=== PATIENT | female | born 1990 | race Caucasian/White ===

== ENCOUNTER 2016-08-01 07:18 | Outpatient (CLI) | payer OTHER ==
[2016-08-01] MEDS ORDERED: IOPAMIDOL-300 100 ML VIAL IVP ONE (07:34)
--- NOTE | 2016-08-01 10:56 | CT Report ---
CT NECK WITH CONTRAST: 08/01/2016 CLINICAL HISTORY: Bilateral swelling, pain. TECHNIQUE: Axial CT images of the neck were obtained with 100 mL Isovue-300 intravenously. Sagittal and coronal reconstructions were performed. FINDINGS: The visualized portions of the orbits and paranasal sinuses are unremarkable. The mastoid air cells are normally pneumatized. The vascular structures enhance normally. The salivary glands and thyroid gland appear unremarkable. There is no cervical adenopathy. No mass lesion is seen in t he neck. The tracheal air column is widely patent throughout. The lung apices are unremarkable. Os seous structures are unremarkable. IMPRESSION: NORMAL CT OF THE NECK WITH CONTRAST. NO EVIDENCE OF ADENOPATHY OR MASS. In accordance with CT protocol optimization, one or more of the following dose reduction techniques w ere utilized for this exam: automated exposure control, adjustment of mA and/or KV based on patient size, or use of iterative reconstructive technique. JOB #: [id number] EXT JOB #:[id number]
== END 2016-08-01 07:19 | disposition home or self-care (01) ==
LOC: DI 07:18
PROVIDERS: ATTEND Otolaryngology
DX: M54.2 Cervicalgia (principal)
CPT/HCPCS: 70491; Q9967

== ENCOUNTER 2016-08-13 18:53 | Outpatient (CLI) | payer OTHER | END 2016-08-13 18:54 | disposition critical access hospital (66) | LOC: EMS 18:53 | PROVIDERS: ATTEND Surgery | DX: M25.561 Pain in right knee (principal); V40.5XXA Car driver injured in collision with pedestrian or animal in traffic accident, initial encounter; Y92.413 State road as the place of occurrence of the external cause | CPT/HCPCS: A0425; A0429 ==

== ENCOUNTER 2016-08-13 18:58 | Emergency (ER) | payer OTHER ==
[2016-08-13] MEDS ORDERED: HYDROcod/ACETAM 5/325 MG TABLET PO STA (19:03)
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
[2016-08-13] MEDS ORDERED: HYDROcod/ACETAM 5/325 MG TABLET ONE (19:16)
--- NOTE | 2016-08-13 20:02 | CT Preliminary Report ---
Exam: CT Cervical Spine W/O IMPRESSION: No acute bony abnormality or significant degenerative change. [facility] SITE ID: [id number]
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
[2016-08-13] MEDS ORDERED: HYDROcod/ACET 5/325 Prepack 6 PO STA (20:36)
[2016-08-13] MEDS ORDERED: HYDROcod/ACET 5/325 Prepack 6 PO ONE (20:37)
[2016-08-13 20:50] VITALS: BP 108/71
== END 2016-08-13 20:48 | disposition home or self-care (01) ==
LOC: EDBD → EDUNIT# → ED 18:58
DX: M54.2 Cervicalgia (principal); M25.561 Pain in right knee; V40.5XXA Car driver injured in collision with pedestrian or animal in traffic accident, initial encounter; Y92.411 Interstate highway as the place of occurrence of the external cause; R03.0 Elevated blood-pressure reading, without diagnosis of hypertension
CPT/HCPCS: 72125; 99283; A9270